=== PATIENT | male | born 1980 | race Caucasian/White ===

== ENCOUNTER 2021-01-06 09:11 | Emergency (ER) | payer MEDICAID ==
[~2021-01-06] VITALS: Ht 188 cm; Wt 102.0 kg
[2021-01-06] MEDS ORDERED: KETOROLAC 60MG/2ML VIAL IM ONE (09:30)
[2021-01-06 09:38] VITALS: BP 137/99
[2021-01-06] MEDS ORDERED: DIAZEPAM 5 MG TABLET PO ONE (10:45)
[2021-01-06] MEDS ORDERED: IBUP-2030 MT (10:57)
[2021-01-06] MEDS ORDERED: METH500T6 MT (10:57)
[2021-01-06] MEDS ORDERED: TRAM50TA3 MT (10:57)
[2021-01-06] MEDS ORDERED: DIAZEPAM 5 MG TABLET PO SCH (11:00)
== END 2021-01-06 11:28 | disposition home or self-care (01) ==
LOC: ER 09:11
DX: M54.40 Lumbago with sciatica, unspecified side (principal); M54.6 Pain in thoracic spine; W01.0XXA Fall on same level from slipping, tripping and stumbling without subsequent striking against object, initial encounter; Y93.89 Activity, other specified; Y92.018 Other place in single-family (private) house as the place of occurrence of the external cause
CPT/HCPCS: 72070; 72100; 96372; 99284; J1885; Z7610